=== PATIENT | female | born 1990 | race Caucasian/White ===

== ENCOUNTER 2019-03-17 05:20 | Inpatient (IN) ==
--- NOTE | 2019-02-05 15:23 | PAT Medication Instructions ---
Medication Instructions Date of Service February 05, 2019 Home Medications Medication Instructions Recorded ondansetron HCl 4 mg tablet 4 mg PO Q6H PRN #20 tab 01/23/19 docusate sodium 100 mg capsule 100 mg PO DAILY PRN doxylamine succinate 1 tab PO HS [id number] 1 tab PO DAILY ranitidine HCl 150 mg PO DAILY PRN ondansetron HCl 4 mg tablet 4 mg PO Q6H PRN albuterol sulfate 1 puff INHALATION Q6H PRN lamotrigine 150 mg PO HS sertraline 25 mg PO HS DO NOT take the morning of surgery docusate sodium 100 mg capsule 100 mg PO DAILY PRN [id number] 1 tab PO DAILY ranitidine HCl 150 mg PO DAILY PRN Take morning of surgery With a small sip of water, OTHERWISE NOTHING TO EAT OR DRINK AFTER MIDNIGHT: ondansetron HCl 4 mg tablet 4 mg PO Q6H PRN (if needed) albuterol sulfate 1 puff INHALATION Q6H PRN (use if needed; please bring with you to hospital day of surgery if possible) Take evening before surgery docusate sodium 100 mg capsule 100 mg PO DAILY PRN (if needed) doxylamine succinate 1 tab PO HS ranitidine HCl 150 mg PO DAILY PRN (if needed) ondansetron HCl 4 mg tablet 4 mg PO Q6H PRN (if needed) albuterol sulfate 1 puff INHALATION Q6H PRN (if needed) lamotrigine 150 mg PO HS sertraline 25 mg PO HS Other Notes If you have any questions please call us at [phone] or [phone] or [phone] or [phone]
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
[2019-03-17] MEDS ORDERED: LACTATED RINGER'S 1,000 ML IV SCH ×2 (05:45→06:34)
[2019-03-17] MEDS ORDERED: CITRIC ACID/SODIUM CITRATE 15 ML UDC PO SCH (06:00)
[2019-03-17 06:09] LABS: Basophils # (auto) 0.01 K/uL (0-0.2); Basophils % (auto) 0.1 %; Eosinophils # (auto) 0.07 K/uL (0-0.5); Eosinophils % (auto) 0.8 %; Hematocrit (blood only) 36.9 % (37-47); Hemoglobin 12.9 g/dL (12.0-16.0); Immature Granulocytes # (auto) 0.05 K/uL (0.00-0.02); Immature Granulocytes % (auto) 0.5 %; Lymphocytes # (auto) 1.95 K/uL (1.2-3.4); Lymphocytes % (auto) 21.3 %; Mean Corpuscular Volume 85.8 fL (80-100); Mean Platelet Volume 10.9 fL (7.4-10.4); Monocytes # (auto) 1.04 K/uL (0.11-0.59); Monocytes % (auto) 11.4 %; Neutrophils # (auto) 6.02 K/uL (1.4-6.5); Neutrophils % (auto) 65.9 %; Platelet Count 179 K/uL (130-400); RDW Coefficient of Variation 13.3 % (11.5-14.5); RDW Standard Deviation 41.2 fL (36.4-46.3); White Blood Count 9.14 K/uL (4.8-10.8)
[2019-03-17] MEDS ORDERED: MoRPHine SULFATE PF 1 MG/ML 10 ML AMP/VIAL ONE (06:43)
[2019-03-17] MEDS ORDERED: fentaNYL citrate 100 MCG/2 ML VIAL ONE ×3 (06:43→09:08)
[2019-03-17] MEDS ORDERED: OXYTOCIN 10 UNITS/ML VIAL ONE (06:43)
[2019-03-17] MEDS ORDERED: NALBUPHINE HCL INJ 10 MG/ML AMP IV PRN (07:02)
[2019-03-17] MEDS ORDERED: NALOXONE HCL 0.4 MG/1 ML VIAL/CARP IV PRN (07:02)
[2019-03-17] MEDS ORDERED: LACTATED RINGER'S 500 ML IV PRN (07:02)
[2019-03-17] MEDS ORDERED: MoRPHine SULFATE PF 1 MG/ML 10 ML AMP/VIAL INT SPINAL ONE (07:02)
[2019-03-17] MEDS ORDERED: ONDANSETRON INJ 2 MG/ML 2 ML VIAL IV PRN (07:02)
[2019-03-17] MEDS ORDERED: NALOXONE HCL 0.08 MG in SYRINGE 1.8 ML IV PRN (07:02)
[2019-03-17] MEDS ORDERED: NALOXONE HCL 1 MG in SODIUM CHLORIDE 0.9% 1000ML 1,000 ML IV PRN (07:02)
[2019-03-17] MEDS ORDERED: ePHEDrine sulfate 50 MG/ML AMP IV PRN ×2 (07:02→09:58)
[2019-03-17] MEDS ORDERED: DiphenhydrAMINE HCL 50 MG/ML VIAL IV PRN (07:02)
[2019-03-17] MEDS ORDERED: NO NARCOTICS OR SEDATIVES SCH (07:15)
[2019-03-17] MEDS ORDERED: SODIUM CHLORIDE 0.9% 1000ML 1,000 ML IV SCH (07:15)
[2019-03-17] MEDS ORDERED: GENTAMICIN CONSULT ACTIVE PRN (07:21)
[2019-03-17] MEDS ORDERED: GENTAMICIN SULFATE 320 MG in DEXTROSE 5% 100 ML IV ONE (07:30)
[2019-03-17] MEDS ORDERED: CLINDAMYCIN 900 MG in DEXTROSE 5% 50 ML IV ONE (07:30)
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
[2019-03-17] MEDS ORDERED: PHENYLEPHRINE 100MCG/ML 5ML SYR ONE (08:37)
[2019-03-17] MEDS ORDERED: ONDANSETRON INJ 2 MG/ML 2 ML VIAL ONE (08:37)
[2019-03-17] MEDS ORDERED: KETOROLAC 30 MG/ML VIAL ONE (08:41)
--- NOTE | 2019-03-17 09:22 | Post Operative Brief Note ---
PG Immediate Post Op with CF Date of Surgery March 17, 2019 Pre & Post Diagnosis Operation Date: 03/17/19 07:30 Pre-Op Diagnosis: Hx of Section, Desires Sterilization I identified the patient and participated in the time-out.: Yes Procedure Operation Date: 03/17/19 07:30 Actual Procedures p Section, with - Ayan Balbuena MD s Post Tubal Ligation - Ayan Balbuena MD Complications: None EBL 400 Surgeon Ayan Balbuena MD Delinquent Account Clerk Dr. Alexander Estimated Blood Loss 400 Findings Consistent with Post-Op Diagnosis Drains Sanchez Catheter
[2019-03-17] MEDS: HYDROmorphone INJ 0.5 MG/0.5 ML SYR IV PRN ×2 (09:48→14:33)
[2019-03-17] MEDS ORDERED: SUPERCREAM 0.870% 15 GM JAR EXT PRN (09:52)
[2019-03-17] MEDS ORDERED: HYDROCORTISONE ACETATE 25 MG SUPP PR PRN (09:52)
[2019-03-17] MEDS ORDERED: BENZOCAINE 20% AER SPR 82.5 GM CAN EXT PRN (09:52)
[2019-03-17] MEDS ORDERED: SENNA 8.6 MG TAB PO PRN (09:52)
[2019-03-17] MEDS ORDERED: DIPHTHERIA/TETANUS/PERTUSSIS 0.5 ML SYR/VIAL IM ONE (09:52)
[2019-03-17] MEDS ORDERED: MAGNESIUM HYDROXIDE SUSP 30 ML UDC PO PRN (09:52)
[2019-03-17] MEDS ORDERED: ATROPINE SULFATE 0.1 MG/ML 10ML SYR IV PRN (09:58)
[2019-03-17] MEDS ORDERED: HYDROmorphone INJ 1 MG/ML SYRINGE IV PRN (09:58)
[2019-03-17] MEDS ORDERED: ACETAMINOPHEN 1,000 MG/100 ML VIAL IV STA (10:25)
[2019-03-17] MEDS ORDERED: OXYTOCIN 20 UNITS in LACTATED RINGER'S 1,000 ML IV SCH (10:30)
--- NOTE | 2019-03-17 10:41 | Anesthesiology Progress Note ---
Date of Service March 17, 2019 Anesthesia Post Procedure Vital Signs Vital Signs: Temp Pulse Resp BP Pulse Ox 03/17/19 10:37 102 H 113/74 03/17/19 10:36 88 100 03/17/19 10:31 89 100 03/17/19 10:27 74 116/77 03/17/19 10:26 88 99 03/17/19 10:21 80 98 03/17/19 10:17 78 112/75 03/17/19 10:16 90 99 03/17/19 10:11 70 99 03/17/19 10:10 18 03/17/19 10:07 81 103/64 03/17/19 10:06 81 97 03/17/19 10:01 77 99 03/17/19 10:00 18 03/17/19 09:57 81 110/66 03/17/19 09:56 87 99 03/17/19 09:51 86 98 03/17/19 09:50 18 03/17/19 09:48 83 131/74 03/17/19 09:46 88 99 03/17/19 09:41 88 99 03/17/19 09:40 18 03/17/19 09:37 86 94 03/17/19 09:36 82 98 03/17/19 09:31 83 98 03/17/19 09:30 36.7 C 18 03/17/19 09:27 80 127/82 03/17/19 07:06 36.7 C 16 03/17/19 07:04 88 120/77 03/17/19 05:46 36.4 C L 101 H 18 127/85 03/17/19 05:33 101 H 127/85 Pain Intensity Bilateral Abdomen: Pain Intensity: 3 Transfer of Care Handoff Completed per policy Notes Mental Status: alert / awake / arousable and participated in evaluation Patient Amnestic to Procedure: Yes Nausea / Vomiting: adequately controlled Pain: adequately controlled Airway Patency, RR, SpO2: stable & adequate BP & HR: stable & adequate Hydration State: stable & adequate Neuraxial Anesthesia: was administered and sensory block is resolving Anesthetic Complications: no major complications apparent and Pt Satisfied with anesthetic care
[2019-03-17] MEDS: SERTRALINE HCL 50 MG TABLET PO SCH (13:31)
[2019-03-17] MEDS ORDERED: MORPHINE SULFATE PCA 30 MG/30 ML IV SCH (13:45)
[2019-03-17] MEDS: SIMETHICONE 80 MG CHEW PO SCH ×2 (17:17→20:55)
[2019-03-17] MEDS: LACTATED RINGER'S 1,000 ML IV SCH (20:15)
[2019-03-17] MEDS: lamoTRIgine 100 MG TAB PO SCH (20:55)
[2019-03-17] MEDS ORDERED: DOCUSATE SODIUM 100 MG CAP PO SCH (21:00)
[2019-03-18] MEDS ORDERED: DiphenhydrAMINE HCL 50 MG/ML VIAL IV PRN (01:02)
[2019-03-18] MEDS ORDERED: DC INTRASPINAL MORPHINE ONE (01:02)
[2019-03-18] MEDS ORDERED: ONDANSETRON INJ 2 MG/ML 2 ML VIAL IV PRN (01:02)
[2019-03-18] MEDS ORDERED: KETOROLAC 30 MG/ML VIAL IV PRN (01:02)
[2019-03-18] MEDS ORDERED: PROMETHAZINE HCL 25 MG in SODIUM CHLORIDE 0.9% 50 ML IV PRN (01:02)
[2019-03-18] MEDS: LACTATED RINGER'S 1,000 ML IV SCH (04:19)
--- NOTE | 2019-03-18 05:39 | Obstetrical Progress Note ---
Date of Service <Geoff Arechiga MD - Last Filed: 03/18/19 06:52> March 18, 2019 Assessment & Plan <Geoff Arechiga MD - Last Filed: 03/18/19 06:52> (1) : <Jennifer Alexander DO - Last Filed: 03/18/19 08:19> (1) : Subjective <Geoff Arechiga MD - Last Filed: 03/18/19 06:52> Ms. 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; feels like she is having some hesistance with urination; tolerating small meals overnight; and able to ambulate some within room Review of Systems Constitutional: denies fever; chills; sweats; headache Respiratory: denies shortness of breath, difficulty breathing Cardiac: denies chest pain; palpitations; chest pressure Breast: denies breast pain : denies dysuria Physical Exam <Geoff Arechiga MD - Last Filed: 03/18/19 06:52> General: alert; oriented; no acute distress Cardiac: RRR; no m/g/r Respiratory: CTAB a/p; no wheezes/rales/rhonchi; no increased work of breathing; symmetrical chest rise; no respiratory distress Abdomen: soft; bowel sounds positive; incision dry and intact without erythema or exudate; tenderness to soft palpation, and anterior wrapping ecchymosis on L abd wall Uterus: uterine fundus firm; palpable 2cm below umbilicus Lower extrem: no lower extremity edema or swelling; no deep calf pain; Umang's sign negative b/l Results & Data <Geoff Arechiga MD - Last Filed: 03/18/19 06:52> Vital Signs (Past 12 Hours) Vital Signs Temp Pulse Resp BP Pulse Ox 03/18/19 04:15 37.0 C 79 18 103/69 03/18/19 01:00 18 98 03/17/19 23:40 36.7 C 84 18 99/62 L 98 03/17/19 23:15 18 98 03/17/19 22:12 18 99 03/17/19 21:00 19 100 03/17/19 20:00 18 99 03/17/19 19:35 36.7 C 87 19 103/66 98 03/17/19 19:09 18 99 03/17/19 18:35 36.8 C 88 18 112/66 99 03/17/19 18:00 18 98 03/17/19 17:35 36.8 C 80 17 96/67 L 99 Laboratory Results 03/18/19 03/17/19 Range/Units 06:10 05:56 WBC 9.72 (4.8-10.8) K/uL RBC 3.78 L (4.2-5.4) M/uL Hgb 11.3 L (12.0-16.0) g/dL Hct 33.4 L (37-47) % MCV 88.4 (80-100) fL MCH 29.9 (25-34) pg MCHC 33.8 (32-36) g/dL RDW Std Deviation 43.3 (36.4-46.3) fL RDW Coeff of Ana 13.4 (11.5-14.5) % Plt Count 150 (130-400) K/uL MPV 10.1 (7.4-10.4) fL Immature Gran % (Auto) 0.5 % Neut % (Auto) 69.3 % Lymph % (Auto) 19.3 % [place] % (Auto) 10.1 % Eos % (Auto) 0.6 % Baso % (Auto) 0.2 % Immature Gran # (Auto) 0.05 H (0.00-0.02) K/uL Neut # (Auto) 6.73 H (1.4-6.5) K/uL Lymph # (Auto) 1.88 (1.2-3.4) K/uL [place] # (Auto) 0.98 H (0.11-0.59) K/uL Eos # (Auto) 0.06 (0-0.5) K/uL Baso # (Auto) 0.02 (0-0.2) K/uL Blood Type O Positive Antibody Screen NEGATIVE <Jennifer Alexander, - Last Filed: 03/18/19 08:19> Co-Signing Physician Notes Resident Physician Supervision Note: I was present with Dr. Arechiga during the history and exam. I discussed the case with the resident and agree with the findings and plan as documented in the note. Any exceptions or clarifications are listed here: POD#1 doing well. Increase ambulation, PO liquids today. Advance diet to solid foods. Documented By: Jennifer Alexander, Resident Activity Tracking <Geoff Arechiga MD - Last Filed: 03/18/19 06:52> Resident Involvement: Resident Care Provided Care Provided: OB Delivery
[2019-03-18 06:22] LABS: Basophils # (auto) 0.02 K/uL (0-0.2); Basophils % (auto) 0.2 %; Eosinophils # (auto) 0.06 K/uL (0-0.5); Eosinophils % (auto) 0.6 %; Hematocrit (blood only) 33.4 % (37-47); Hemoglobin 11.3 g/dL (12.0-16.0); Immature Granulocytes # (auto) 0.05 K/uL (0.00-0.02); Immature Granulocytes % (auto) 0.5 %; Lymphocytes # (auto) 1.88 K/uL (1.2-3.4); Lymphocytes % (auto) 19.3 %; Mean Corpuscular Hemoglobin 29.9 pg (25-34); Mean Corpuscular Hgb Conc 33.8 g/dL (32-36); Mean Corpuscular Volume 88.4 fL (80-100); Mean Platelet Volume 10.1 fL (7.4-10.4); Monocytes # (auto) 0.98 K/uL (0.11-0.59); Monocytes % (auto) 10.1 %; Neutrophils # (auto) 6.73 K/uL (1.4-6.5); Neutrophils % (auto) 69.3 %; Platelet Count 150 K/uL (130-400); RDW Coefficient of Variation 13.4 % (11.5-14.5); RDW Standard Deviation 43.3 fL (36.4-46.3); Red Blood Count 3.78 M/uL (4.2-5.4); White Blood Count 9.72 K/uL (4.8-10.8)
[2019-03-18] MEDS: OXYCODONE/ACETAMINOPHEN 5mg/325mg TAB PO PRN ×4 (08:47→21:28)
[2019-03-18] MEDS: IBUPROFEN 600 MG TAB PO PRN ×4 (08:48→21:27)
[2019-03-18] MEDS: DOCUSATE SODIUM 100 MG CAP PO SCH ×2 (08:49→20:30)
[2019-03-18] MEDS: PRENATAL VITAMIN 1 TAB PO SCH (08:49)
[2019-03-18] MEDS: FERROUS SULFATE 325 MG TAB PO SCH (08:49)
[2019-03-18] MEDS: SIMETHICONE 80 MG CHEW PO SCH ×3 (08:50→20:30)
[2019-03-18] MEDS: SERTRALINE HCL 50 MG TABLET PO SCH (09:36)
[2019-03-18] MEDS ORDERED: bisacodyL 5 MG TABEC PO SCH (20:00)
[2019-03-18] MEDS: lamoTRIgine 100 MG TAB PO SCH (20:31)
[2019-03-19] MEDS: IBUPROFEN 600 MG TAB PO PRN ×3 (01:49→10:38)
[2019-03-19] MEDS: OXYCODONE/ACETAMINOPHEN 5mg/325mg TAB PO PRN ×3 (01:50→10:38)
--- NOTE | 2019-03-19 06:14 | Obstetrical Progress Note ---
Date of Service <Geoff Arechiga MD - Last Filed: 03/19/19 06:59> March 19, 2019 Assessment & Plan <Geoff Arechiga MD - Last Filed: 03/19/19 06:59> (1) : s/p RLTCS with b/l tubal ligation POD#2 doing well, tolerating small meals well overnight, incision warm/dry and intact continue routine care until discharge Will have follow-up with Dr. Balbuena in 6 weeks following discharge Subjective <Geoff Arechiga MD - Last Filed: 03/19/19 06:59> Ms. Simmons is a 29 y/o female ; POD #2 following delivery at 39+ weeks; doing well this morning; having some abdominal pain that has required Morphine AUTOMOTIVE PARTS COUNTERPERSON overnight; feels like she is having some hesistance with urination; tolerating small meals overnight; and able to ambulate some within room Review of Systems Constitutional: denies fever; chills; sweats; headache Respiratory: denies shortness of breath, difficulty breathing Cardiac: denies chest pain; palpitations; chest pressure Breast: denies breast pain : denies dysuria Physical Exam <Geoff Arechiga MD - Last Filed: 03/19/19 06:59> General: alert; oriented; no acute distress Cardiac: RRR; no m/g/r Respiratory: CTAB a/p; no wheezes/rales/rhonchi; no increased work of breathing; symmetrical chest rise; no respiratory distress Abdomen: soft; NT/ND; bowel sounds positive Uterus: uterine fundus firm; palpable 3cm below umbilicus Lower extrem: no lower extremity edema or swelling; no deep calf pain; Umang's sign negative b/l Results & Data <Geoff Arechiga MD - Last Filed: 03/19/19 06:59> Vital Signs (Past 12 Hours) Vital Signs Temp Pulse Resp BP Pulse Ox 03/18/19 23:20 36.7 C 82 18 101/73 97 Laboratory Results 03/19/19 Range/Units 06:18 Hgb 11.4 L (12.0-16.0) g/dL Hct 33.0 L (37-47) % Medications Administered Current Inpatient Medications Benzocaine (Dermoplast Pain Relieving Noel) 1 appln EXT UD PRN PRN Reason: use on skin as needed Stop: 04/16/19 09:51 Bisacodyl (Dulcolax) 10 mg MT PRN PRN PRN Reason: Constipation Stop: 04/18/19 09:00 Cocaine HCl (Supercream 0.870%) 1 gm EXT UD PRN PRN Reason: hemmorrhoidal inflammation Stop: 03/31/19 09:51 Diphenhydramine HCl (Benadryl Capsule) 25 mg PO QID PRN PRN Reason: Itching Stop: 04/17/19 01:01 Last Admin: 03/18/19 21:27 Dose: 25 mg Documented by: Diphenhydramine HCl (Benadryl) 25 mg IV QID PRN PRN Reason: Itching Stop: 04/17/19 01:01 Docusate Sodium (Colace) 300 mg PO DAILY@08,21 [facility] Stop: 04/17/19 07:59 Last Admin: 03/18/19 20:30 Dose: 300 mg Documented by: Ferrous Sulfate (Feosol) 325 mg PO DAILY@08 [facility] Stop: 04/17/19 07:59 Last Admin: 03/18/19 08:49 Dose: 325 mg Documented by: Hydrocortisone (Anusol Hc) 25 mg MT BID PRN PRN Reason: Hemorrhoids Stop: 04/16/19 09:51 Promethazine HCl 25 mg/ Sodium (Chloride) 51 mls @ 204 mls/hr IV Q4H PRN PRN Reason: Nausea And Vomiting Stop: 04/17/19 01:01 Lactated Ringer's (Lr) 1,000 mls @ 125 mls/hr IV .Q8H [facility] Stop: 04/16/19 20:14 Last Admin: 03/18/19 04:19 Dose: 20 mls/hr Documented by: Ibuprofen (Motrin) 600 mg PO Q4H PRN PRN Reason: Pain Stop: 04/16/19 09:51 Last Admin: 03/19/19 06:22 Dose: 600 mg Documented by: Ketorolac Tromethamine (Toradol) 30 mg IV Q6H PRN PRN Reason: Pain Stop: 03/23/19 01:01 Lamotrigine (Lamictal) 150 mg PO HS [facility] Stop: 04/16/19 20:59 Last Admin: 03/18/19 20:31 Dose: 150 mg Documented by: Magnesium Hydroxide (Milk Of Magnesia) 30 ml PO HS PRN PRN Reason: Constipation Stop: 04/16/19 09:51 Last Admin: 03/18/19 12:20 Dose: 30 ml Documented by: Ondansetron HCl (Zofran) 4 mg IV Q4H PRN PRN Reason: Nausea And Vomiting Stop: 04/17/19 01:01 Oxycodone/Acetaminophen (Percocet 5mg/325mg) 1 - 2 tab PO Q4H PRN PRN Reason: Pain Stop: 04/01/19 01:01 Last Admin: 03/19/19 06:22 Dose: 1 tab Documented by: Nildaat Multivit/Kent/Iron/Folic Ac ( Vitamin) 1 tab PO DAILY@08 [facility] Stop: 04/17/19 07:59 Last Admin: 03/18/19 08:49 Dose: 1 tab Documented by: Sennosides (Senokot) 17.2 mg PO HS PRN PRN Reason: Constipation Stop: 04/16/19 09:51 Sertraline HCl (Zoloft) 25 mg PO QAM [facility] Stop: 04/16/19 13:29 Last Admin: 03/18/19 09:36 Dose: 25 mg Documented by: Simethicone (Mylicon) 80 mg PO DAILY@08,13,17,21 [facility] Stop: 04/16/19 12:59 Last Admin: 03/18/19 20:30 Dose: 80 mg Documented by: <Crista Shepherd MD, FACOG - Last Filed: 03/19/19 08:34> Co-Signing Physician Notes Resident Physician Supervision Note: I interviewed and examined the patient. Discussed with and agree with findings and plan as documented in the note. Any exceptions or clarifications are listed here: [None] Documented By: Crista Shepherd MD, FACOG Resident Activity Tracking <Geoff Arechiga MD - Last Filed: 03/19/19 06:59> Resident Involvement: Resident Care Provided Care Provided: OB Delivery
[2019-03-19 06:36] LABS: Hemoglobin 11.4 g/dL (12.0-16.0)
[2019-03-19] MEDS: PRENATAL VITAMIN 1 TAB PO SCH (08:43)
[2019-03-19] MEDS: SERTRALINE HCL 50 MG TABLET PO SCH (08:43)
[2019-03-19] MEDS: SIMETHICONE 80 MG CHEW PO SCH (08:43)
[2019-03-19] MEDS: FERROUS SULFATE 325 MG TAB PO SCH (08:43)
[2019-03-19] MEDS: DOCUSATE SODIUM 100 MG CAP PO SCH (08:51)
[2019-03-19] MEDS ORDERED: bisacodyL 10 MG SUPP PR PRN (09:01)
--- NOTE | 2019-03-24 08:01 | Operative Report ---
DATE OF OPERATION: 03/21/2019 PROCEDURE: Repeat low transverse section with bilateral tubal ligation. PREOPERATIVE DIAGNOSES: 1. Single intrauterine at term. 2. History of prior section. 3. Breech presentation. 4. Desired permanent sterilization. POSTOPERATIVE DIAGNOSES: 1. Single intrauterine at term. 2. History of prior section. 3. Breech presentation. 4. Desired permanent sterilization. 5. Status post delivery. SURGEON: Ayan Balbuena MD. BRANCH SPECIALIST: Jennifer Alexander DO. ESTIMATED BLOOD LOSS: 400 mL. DRAINS: None. FLUIDS: Continuous lactated ringer. URINE OUTPUT: Via Sanchez. COMPLICATIONS: None. FINDINGS: There is noted to be a single, viable in breech presentation of delivery. The fetus was noted to be viable, weighing 6 pounds 0.5 ounces, Apgars of 7 and 9 at 1 and 5 minutes respectively. DESCRIPTION OF PROCEDURE: The patient was taken to the operating room after consents were ensured. Upon presentation, she was properly identified. Spinal anesthesia was obtained without difficulty. The patient was then prepped and draped in the normal sterile fashion. Preprocedural timeout was performed. A Pfannenstiel incision was made with a knife and was carried down to underlying fascia with the Bovie. The fascia was nicked at the midline with a knife. The fascia was then extended laterally in each direction with pickmihaela and Fowler scissors. The superior aspect of the fascia was grasped with Kochers x2, elevated off the underlying rectus muscles using blunt dissection and the knife. The inferior aspect of the fascia was then grasped with Kochers x2, elevated off the underlying rectus muscle using blunt dissection. The midline was then entered bluntly. The uterus was noted to be midline. Bladder blade was inserted. The abdomen was then placed on stretch to provide adequate room for delivery. A low transverse uterine incision was then made with a knife. The amniotic cavity was entered bluntly and noted to have clear fluid. The was noted to be in double footling breech presentation and was delivered without difficulty. The was not noted to be vigorous upon delivery and the cord was double clamped and cut. was taken to the waiting nursery staff. Cord blood was then obtained. Attention was then turned to deliver the placenta, delivered intact, 3-vessel cord with gentle cord traction. The uterus was then exteriorized and several passes were made to remove any remaining membranes with a wet lap. The hysterotomy was then closed with 0 Vicryl in single running interlocking stitch. The hysterotomy was noted to be hemostatic. The tubal portion of the procedure was performed. A [place] tubal ligation was performed bilaterally with tubal segments sent to pathology for evaluation. On inspection of the hysterotomy, there was noted to be continued hemostasis. The posterior cul-de-sac was then cleaned of clots and debris and the uterus returned to maternal abdomen. Right and left pericolic gutters were cleaned of clots and debris and the tubal pedicles were noted to be hemostatic. Inspection of the hysterotomy noted continued hemostasis. Inspection of the muscle fascia and space of Retzius was noted to be hemostatic. The fascia was then reapproximated with 0 Vicryl continuous running locked stitch starting from each apices with continued in midline. The subcutaneous layers were reapproximated with plain in interrupted stitch. The dermal layer was reapproximated with 3-0 Vicryl in a subcuticular stitch. The needle, sponge and instrument counts were correct at the completion of the case. The patient received 2 grams of Ancef prior to start of the case. Both mother and were stable in the immediate post-delivery. I attest to the content of the Intraoperative Record and any orders documented therein. Any exception s are noted below.
--- NOTE | 2019-03-26 15:35 | Discharge Summary ---
PROCEDURES WHILE ADMITTED: Repeat low transverse section with bilateral tubal ligation. HOSPITAL COURSE: The patient was admitted for a scheduled repeat low transverse section with bilateral tubal ligation. The procedure was performed without complication. The patient remained in house until postoperative day 2, at which time she was meeting all postoperative goals and did request discharge. The patient was discharged in stable condition as there were no complications throughout her hospital stay. The patient was provided with both written and verbal discharge instructions and recommended a followup at 6 weeks for standard post evaluation and care or earlier if needed.
== END 2019-03-19 12:10 | disposition home or self-care (01) | DRG 784 ==
LOC: 4S1 05:20 → EDSTATUS 07:30 → 4S2 12:00